=== PATIENT | female | born 1955 | race Caucasian/White ===

== ENCOUNTER → 2017-08-02 | Emergency (ER) | payer OTHER ==
[~2017-08-02] VITALS: Ht 172.7 cm; Wt 108.9 kg
[~2017-08-02] MED LIST: APRESOLINE 10MG10 MG; APRESOLINE 10MG10 MG PO; CATAFLAM50 MG PO; HYZAAR 100-251 EACH; METFORMIN HCL500 MG; ORPH100T PO; PREDNISONE50 MG PO; RYBIX ODT50 MG PO; SINGULAIR4 MG PO; SYNTHROID50 MCG
== END | disposition home or self-care (01) ==
LOC: ER 10:19
DX: K52.9 Noninfective gastroenteritis and colitis, unspecified (principal)

== ENCOUNTER 2018-11-21 11:02 | Outpatient (CLI) | payer OTHER | END 2018-11-21 11:23 | disposition home or self-care (01) | LOC: NUCLEAR 11:02 | DX: M85.80 Other specified disorders of bone density and structure, unspecified site (principal); M81.0 Age-related osteoporosis without current pathological fracture ==

== ENCOUNTER → 2018-11-21 | Outpatient (CLI) | payer OTHER | END | disposition home or self-care (01) | LOC: SONOGRAMA 08:15 → MAMO-SONO 11:58 | DX: N64.4 Mastodynia (principal); R92.2 Inconclusive mammogram; N60.19 Diffuse cystic mastopathy of unspecified breast; Z12.31 Encounter for screening mammogram for malignant neoplasm of breast; N95.1 Menopausal and female climacteric states; Z78.9 Other specified health status; Z78.0 Asymptomatic menopausal state ==

== ENCOUNTER → 2019-03-24 | Outpatient (CLI) | payer OTHER | END | disposition home or self-care (01) | LOC: MAMO-SONO 08:15 → SONOGRAMA 08:34 | DX: E04.1 Nontoxic single thyroid nodule (principal); K80.80 Other cholelithiasis without obstruction; R16.0 Hepatomegaly, not elsewhere classified ==

== ENCOUNTER → 2019-10-04 | Emergency (ER) | payer OTHER ==
[~2019-10-04] VITALS: Ht 170.2 cm; Wt 81.6 kg
== END | disposition designated cancer center or children's hospital (05) ==
LOC: ER 05:39
DX: G93.89 Other specified disorders of brain (principal); G91.8 Other hydrocephalus; K80.20 Calculus of gallbladder without cholecystitis without obstruction; N20.0 Calculus of kidney; K76.89 Other specified diseases of liver; R11.11 Vomiting without nausea; R41.82 Altered mental status, unspecified; R10.84 Generalized abdominal pain

== ENCOUNTER 2021-01-24 09:24 | Emergency (ER) | payer OTHER ==
[~2021-01-24] VITALS: Ht 172.7 cm; Wt 68.0 kg
[2021-01-24] MEDS ORDERED: KETO10TA2 PO (13:19)
== END 2021-01-24 14:16 ==
LOC: ER 09:24
DX: S20.211A Contusion of right front wall of thorax, initial encounter (principal); X50.9XXA Other and unspecified overexertion or strenuous movements or postures, initial encounter; Y93.89 Activity, other specified; Y92.89 Other specified places as the place of occurrence of the external cause; Y99.8 Other external cause status

== ENCOUNTER 2021-08-01 09:55 | Outpatient (CLI) | payer OTHER ==
[~2021-08-01 09:55] MED LIST changes: +KETO10TA2 PO
== END 2021-08-01 10:00 | disposition home or self-care (01) ==
LOC: SONOGRAMA 09:55
PROVIDERS: ATTEND Pathology Anatomic Pathology & Clinical Pathology
DX: E04.2 Nontoxic multinodular goiter (principal)

== ENCOUNTER 2022-02-01 07:09 | Outpatient (CLI) | payer OTHER | END 2022-02-01 07:10 | disposition home or self-care (01) | LOC: NUCLEAR 07:09 | DX: M81.0 Age-related osteoporosis without current pathological fracture (principal); E05.00 Thyrotoxicosis with diffuse goiter without thyrotoxic crisis or storm | CPT/HCPCS: 77080; 78014; A9512; A9528 ==

== ENCOUNTER 2022-02-02 07:30 | Outpatient (CLI) | payer OTHER | END 2022-02-02 07:31 | disposition home or self-care (01) | LOC: NUCLEAR 07:30 | PROVIDERS: ATTEND Student in an Organized Health Care Education/Training Program | DX: E05.00 Thyrotoxicosis with diffuse goiter without thyrotoxic crisis or storm (principal) | CPT/HCPCS: 78014; A9512 ==

== ENCOUNTER 2022-02-04 08:52 | Outpatient (CLI) | payer OTHER | END 2022-02-04 08:53 | disposition home or self-care (01) | LOC: RAD 08:52 | PROVIDERS: ATTEND Physical Medicine & Rehabilitation | DX: M51.37 Other intervertebral disc degeneration, lumbosacral region (principal); M47.817 Spondylosis without myelopathy or radiculopathy, lumbosacral region; M16.0 Bilateral primary osteoarthritis of hip; M54.50 Low back pain, unspecified; M25.572 Pain in left ankle and joints of left foot; M25.571 Pain in right ankle and joints of right foot; M99.01 Segmental and somatic dysfunction of cervical region; M99.02 Segmental and somatic dysfunction of thoracic region; M99.03 Segmental and somatic dysfunction of lumbar region ==

== ENCOUNTER 2022-02-04 10:43 | Outpatient (CLI) | payer OTHER | END 2022-02-04 23:00 | disposition home or self-care (01) | LOC: LAB 10:43 | DX: E03.8 Other specified hypothyroidism (principal); C73 Malignant neoplasm of thyroid gland; E11.40 Type 2 diabetes mellitus with diabetic neuropathy, unspecified; E11.22 Type 2 diabetes mellitus with diabetic chronic kidney disease ==

== ENCOUNTER 2022-03-09 09:42 | Outpatient (CLI) | payer OTHER | END 2022-03-09 09:47 | disposition home or self-care (01) | LOC: MRI 09:42 | DX: M51.06 Intervertebral disc disorders with myelopathy, lumbar region (principal) | CPT/HCPCS: 72148 ==

== ENCOUNTER 2022-06-02 10:49 | Outpatient (CLI) | payer OTHER | END 2022-06-02 10:51 | disposition home or self-care (01) | LOC: RAD 10:49 | PROVIDERS: ATTEND Orthopaedic Surgery Hand Surgery | DX: M24.542 Contracture, left hand (principal) ==

== ENCOUNTER 2022-09-07 08:50 | Outpatient (CLI) | payer OTHER | END 2022-09-07 09:10 | disposition home or self-care (01) | LOC: MRI 08:50 | PROVIDERS: ATTEND Physical Medicine & Rehabilitation Pain Medicine | DX: M54.12 Radiculopathy, cervical region (principal) | CPT/HCPCS: 72141 ==

== ENCOUNTER → 2022-09-07 09:07 | Outpatient (CLI) | payer OTHER | END | disposition home or self-care (01) | LOC: LAB 09:07 | DX: E11.22 Type 2 diabetes mellitus with diabetic chronic kidney disease (principal); E03.9 Hypothyroidism, unspecified; E11.40 Type 2 diabetes mellitus with diabetic neuropathy, unspecified; E53.9 Vitamin B deficiency, unspecified; M79.10 Myalgia, unspecified site; M35.9 Systemic involvement of connective tissue, unspecified; R53.83 Other fatigue; M25.50 Pain in unspecified joint ==

== ENCOUNTER 2022-12-14 08:18 | Outpatient (CLI) | payer OTHER | END 2022-12-14 08:22 | disposition home or self-care (01) | LOC: LAB 08:18 | DX: E78.2 Mixed hyperlipidemia (principal); N18.1 Chronic kidney disease, stage 1; I12.9 Hypertensive chronic kidney disease with stage 1 through stage 4 chronic kidney disease, or unspecified chronic kidney disease; R73.01 Impaired fasting glucose ==

== ENCOUNTER 2023-02-26 09:22 | Outpatient (CLI) | payer OTHER | END 2023-02-26 09:24 | disposition home or self-care (01) | LOC: SONOGRAMA 09:22 | PROVIDERS: ATTEND Pathology Anatomic Pathology & Clinical Pathology | DX: D34 Benign neoplasm of thyroid gland (principal); E06.5 Other chronic thyroiditis; E04.9 Nontoxic goiter, unspecified ==

== ENCOUNTER 2023-03-26 08:08 | Outpatient (CLI) | payer OTHER ==
[2023-03-26 09:10] LABS: HEMATOCRIT 39.5 % (36.0-45.00); HEMOGLOBIN 13.2 g/dL (12.0-15.00); MEAN CELL VOLUME 91.5 fL (80.00-100.00); MEAN CORPUSCULAR HEMOGLOBIN 30.5 pg (27.00-32.0); MEAN CORPUSCULAR HGB CONC 33.3 g/dl (32.0-36.0); PLATELET COUNT 231 K/uL (150-450); RED BLOOD COUNT 4.32 M/uL (4.00-6.00)
[2023-03-26 09:44] LABS: ALBUMIN 3.4 gm/dL (3.4-5.0); BILIRUBIN TOTAL 0.44 mg/dL (0.3-1.2); CALCIUM 8.6 mg/dL (8.5-10.1); CREATININE SERUM 0.65 mg/dL (0.55-1.02); GFR 90.91; GLOBULINA 2.7 G/DL (2.4-3.5); POTASSIUM 4.4 mEq/L (3.5-5.1); TOTAL PROTEIN 6.1 gm/dL (6.4-8.2)
== END 2023-03-26 08:09 | disposition home or self-care (01) ==
LOC: LAB 08:08
DX: E55.9 Vitamin D deficiency, unspecified (principal); M79.10 Myalgia, unspecified site; R53.83 Other fatigue; M25.50 Pain in unspecified joint; R53.1 Weakness

== ENCOUNTER → 2023-03-26 | Outpatient (CLI) | payer OTHER | END | disposition home or self-care (01) | LOC: SONOGRAMA 11:12 | PROVIDERS: ATTEND Pathology Anatomic Pathology & Clinical Pathology | DX: D11.0 Benign neoplasm of parotid gland (principal) ==

== ENCOUNTER 2023-05-29 08:13 | Outpatient (CLI) | payer OTHER ==
[2023-05-29 09:11] LABS: HEMATOCRIT 41.7 % (36.0-45.00); HEMOGLOBIN 13.6 g/dL (12.0-15.00); MEAN CELL VOLUME 91.1 fL (80.00-100.00); MEAN CORPUSCULAR HEMOGLOBIN 29.7 pg (27.00-32.0); MEAN CORPUSCULAR HGB CONC 32.6 g/dl (32.0-36.0); PLATELET COUNT 222 K/uL (150-450); RED BLOOD COUNT 4.57 M/uL (4.00-6.00); RED CELL DISTRIBUTION WIDTH 14.5 % (11.5-14.5)
[2023-05-29 10:17] LABS: URINE APPEARANCE Clear; URINE BILIRRUBIN Negative (NEGATIVE); URINE BLOOD Negative; URINE COLOR Yellow; URINE GLUCOSE Negative (NEGATIVE); URINE LEUKOCYTE Trace; URINE NITRATE Negative; URINE PROTEIN Negative (NEGATIVE); URINE UROBILINOGEN 0.2 E.U./dl
[2023-05-29 10:18] LABS: ALBUMIN 3.4 gm/dL (3.4-5.0); ALKALINE PHOSPHATASE 54 U/L (50-136); ALT/SGPT 19 U/L (12-78); ANION GAP 9 (10.0-20.0); AST/SGOT 9 U/L (15-37); BILIRUBIN TOTAL 0.45 mg/dL (0.3-1.2); BLOOD UREA NITROGEN 14 mg/dL (7-18); BUN CREA RATIO 18 (7.0-25.0); CALCIUM 9.3 mg/dL (8.5-10.1); CARBON DIOXIDE 30 mEq/L (21-32); CHLORIDE 110 mmol/L (98-107); CHOL HDL RATIO 1.7 (0-5.0); CHOLESTEROL 176 mg/dL (0-200); GFR 71.33; GLOBULINA 2.8 G/DL (2.4-3.5); GLUCOSE FASTING 106 mg/dL (65-100); HDL 101 mg/dl (40-60); LDL 63 mg/dl (0-130); OSMOLALITY SERUM 290 MOSM/KG (275-295); POTASSIUM 4.35 mEq/L (3.5-5.1); SODIUM 145 mmol/L (136-145); TOTAL PROTEIN 6.2 gm/dL (6.4-8.2); TRIGLYCERIDES 58 mg/dL (0-150); VLDL 11 (0-39)
[2023-05-29 10:19] LABS: T4 FREE 1.59 NG/ML (0.76-1.46); TSH < 0.005 uIU/mL (0.358-3.74)
[2023-05-29 10:20] LABS: URINE BACTERIA 21.4 uL (0.0-1933); URINE EPITHELIAL CELLS 17.3 uL (0.0-38.8); URINE RBC 4.8 uL (0.0-20.8)
== END 2023-05-29 08:14 | disposition home or self-care (01) ==
LOC: LAB 08:13
DX: E78.2 Mixed hyperlipidemia (principal); N18.1 Chronic kidney disease, stage 1; I12.9 Hypertensive chronic kidney disease with stage 1 through stage 4 chronic kidney disease, or unspecified chronic kidney disease; E03.9 Hypothyroidism, unspecified; R73.01 Impaired fasting glucose; E55.9 Vitamin D deficiency, unspecified

== ENCOUNTER 2023-06-14 09:38 | Outpatient (CLI) | payer OTHER | END 2023-06-14 10:09 | disposition home or self-care (01) | LOC: MRI 09:38 | DX: M54.16 Radiculopathy, lumbar region (principal) | CPT/HCPCS: 72148 ==

== ENCOUNTER → 2024-05-09 | Outpatient (CLI) | payer OTHER | END | disposition home or self-care (01) | LOC: NUCLEAR 05-08 13:00 | DX: I27.82 Chronic pulmonary embolism (principal); I26.90 Septic pulmonary embolism without acute cor pulmonale | CPT/HCPCS: 78582; A9540 ==

== ENCOUNTER 2024-05-15 10:03 | Outpatient (CLI) | payer OTHER | END 2024-05-15 10:04 | disposition home or self-care (01) | LOC: NUCLEAR 10:03 | PROVIDERS: ATTEND Internal Medicine Pulmonary Disease | DX: K74.69 Other cirrhosis of liver (principal) | CPT/HCPCS: 78215; A9541 ==

== ENCOUNTER 2024-06-10 13:04 | Outpatient (CLI) | payer OTHER | END 2024-06-10 13:08 | disposition home or self-care (01) | LOC: NUCLEAR 13:04 | PROVIDERS: ATTEND Internal Medicine | DX: M81.0 Age-related osteoporosis without current pathological fracture (principal) ==

== ENCOUNTER 2025-02-12 10:48 | Outpatient (CLI) | payer OTHER | END 2025-02-12 10:49 | disposition home or self-care (01) | LOC: SONOGRAMA 10:48 | PROVIDERS: ATTEND Pathology Anatomic Pathology & Clinical Pathology | DX: K11.8 Other diseases of salivary glands (principal) ==